=== PATIENT | male | born 2000 | race Two or more races ===

== ENCOUNTER 2023-05-17 13:22 | Emergency (ER) | payer SELFPAY ==
[~2023-05-17] VITALS: Ht 175.3 cm; Wt 106.0 kg
[2023-05-17 15:40] VITALS: BP 128/80; PULSE 87; RESP 16; TEMP 98.1; O2SAT 94
[2023-05-17] MEDS ORDERED: PRED20TA2 PO (15:48)
== END 2023-05-17 15:53 | disposition home or self-care (01) ==
LOC: ER 13:22
DX: R09.81 Nasal congestion (principal)